=== PATIENT | male | born 1995 | race Caucasian/White ===

== ENCOUNTER 2018-01-21 19:36 | Emergency (ER) | payer BC, OTHER ==
[~2018-01-21] VITALS: Ht 172.7 cm; Wt 102.1 kg
[2018-01-21] MEDS ORDERED: IBUPROFEN 200200 M1 PO (20:10)
[2018-01-21] MEDS ORDERED: BENTYL 10 MG CA10 M1 PO (20:10)
[2018-01-21] MEDS ORDERED: TYLENOL EXTRA500 MG PO (20:10)
[2018-01-21] MEDS ORDERED: ONDANSETRON HCL4 M2 PO (20:10)
[2018-01-21 21:04] LABS: ABSOLUTE NEUTROPHILS 7.8 thou/uL (1.4-8.2); BASOPHILS 0.2 % (0.0-2.0); HEMATOCRIT 44.3 % (42.0-52.0); HEMOGLOBIN 15.5 gm/dL (14.0-18.0); LYMPHOCYTES 5.6 % (24.0-44.0); MCH 30.1 pg (26.0-34.0); MCHC 34.9 g/dL (28.0-37.0); MCV 86.1 fL (80.0-100.0); MONOCYTES 4.8 % (1.0-8.0); PLATELET COUNT 166 thou/uL (150-400); POLYS 89.4 % (36.0-66.0); RBC 5.15 mil/uL (4.50-6.00); RDW 13.2 % (10.5-14.5); WBC 8.8 thou/uL (4.0-11.0)
[2018-01-21 21:12] LABS: CALCIUM 9.1 mg/dL (8.5-10.1); CREATININE 1.5 mg/dL (0.7-1.3); POTASSIUM 3.5 mmol/L (3.5-5.1)
[2018-01-21 21:18] LABS: DIRECT BILIRUBIN 0.2 mg/dL (<0.1-0.3); TOTAL BILIRUBIN 0.8 mg/dL (<0.1-1.0); TOTAL PROTEIN 7.7 g/dL (6.4-8.2)
== END 2018-01-22 00:09 | disposition home or self-care (01) ==
LOC: ER 19:36
PROVIDERS: Emergency Medicine
DX: B34.9 Viral infection, unspecified (principal)

== ENCOUNTER 2021-10-01 13:40 | Emergency (ER) | payer OTHER ==
[~2021-10-01] VITALS: Ht 177.8 cm; Wt 97.5 kg
[~2021-10-01 13:40] MED LIST: BENTYL 10 MG CA10 M1 PO; IBUPROFEN 200200 M1 PO; ONDANSETRON HCL4 M2 PO; TYLENOL EXTRA500 MG PO
[2021-10-01] MEDS ORDERED: ONDANSETRON HCL4 M2 PO (16:07)
[2021-10-01] MEDS ORDERED: NAPROSYN500 MG PO (16:07)
[2021-10-01 16:26] VITALS: BP 143/84
--- NOTE | 2021-10-02 07:18 | EKG ---
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
== END 2021-10-01 16:27 | disposition home or self-care (01) ==
LOC: ER 13:40
DX: I10 Essential (primary) hypertension (principal); R51.9 Headache, unspecified

== ENCOUNTER 2021-12-16 08:10 | Emergency (ER) | payer OTHER ==
[~2021-12-16] VITALS: Ht 177.8 cm; Wt 99.8 kg
[~2021-12-16 08:10] MED LIST changes: +NAPROSYN500 MG PO
[2021-12-16 08:46] LABS: ABSOLUTE NEUTROPHILS 3.4 thou/uL (1.4-8.2); BASOPHILS 0.4 % (0.0-2.0); EOSINOPHILS 0.4 % (0.0-3.0); HEMATOCRIT 46.2 % (42.0-52.0); LYMPHOCYTES 34.7 % (24.0-44.0); MCH 29.8 pg (26.0-34.0); MCHC 34.6 g/dL (28.0-37.0); MCV 86.1 fL (80.0-100.0); MONOCYTES 6.5 % (1.0-8.0); PLATELET COUNT 254 thou/uL (150-400); RBC 5.37 mil/uL (4.50-6.00); RDW 12.6 % (10.5-14.5); WBC 5.8 thou/uL (4.0-11.0)
[2021-12-16 08:53] LABS: CALCIUM 9.6 mg/dL (8.5-10.1); CREATININE 1.1 mg/dL (0.7-1.3); POTASSIUM 4.1 mmol/L (3.5-5.1)
[2021-12-16] MEDS ORDERED: TOPROL XL25 MG PO (08:59)
[2021-12-16 10:09] VITALS: BP 124/82
--- NOTE | 2021-12-16 12:26 | EKG ---
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: : 1995 Requested By: Anil Messina Order Number: [id number] MD: Ramon Montalvo Measurements Intervals [place] Rate: 76 P: 36 MO: 130 QRS: -29 QRSD: 89 T: 31 QT: 363 QTc: 409 Interpretive Statements Sinus rhythm Borderline left axis deviation Compared to ECG 10/01/2021 14:26:31 No significant changes Electronically Signed On 12-16-2021 12:26:11 SUPERVISOR [employer] by Ramon Montalvo [email or web address] <ELECTRONICALLY SIGNED> By: Ramon Montalvo MD, [facility] 12/16/21 1226 0830 9 Ramon Montalvo MD, FACC /EPI
== END 2021-12-16 10:09 | disposition home or self-care (01) ==
LOC: ER 08:10
PROVIDERS: Emergency Medicine
DX: I10 Essential (primary) hypertension (principal); R10.813 Right lower quadrant abdominal tenderness; R06.02 Shortness of breath